=== PATIENT | male | born 1965 | race Two or more races ===

== ENCOUNTER 2022-12-30 11:32 | Inpatient (IN) | payer BC, OTHER ==
[~2022-12-30] VITALS: Ht 172.7 cm; Wt 107.4 kg
[~2022-12-30 11:32] MED LIST: CIPR-173 PO; METR500T PO
[2022-12-30 12:26] LABS: Basophils # (auto) 0 10 ^3/uL (0-0.2); Basophils % (auto) 0.3 % (0.0-2.0); Eosinophils # (auto) 0.2 10 ^3/uL (0-0.8); Eosinophils % (auto) 2.2 % (0.0-7.0); Hematocrit 47.4 % (41.0-53.0); Hemoglobin 15.8 g/dL (13.5-17.5); Lymphocytes # (auto) 2.3 10 ^3/uL (0.4-5.4); Lymphocytes % (auto) 20.6 % (10.0-50.0); Mean Corpuscular Hemoglobin 30.4 pg (28.0-32.0); Mean Corpuscular Hgb Conc. 33.4 g/dL (32.0-36.0); Mean Corpuscular Volume 91.1 fL (80.0-100.0); Monocytes # (auto) 0.6 10 ^3/uL (0-1.3); Monocytes % (auto) 5.5 % (0.0-12.0); Neutrophils # (auto) 7.9 10 ^3/uL (1.6-8.6); Neutrophils % (auto) 71.4 % (37.0-80.0); Red Cell Distribution Width 13.7 % (11.8-14.3); White Blood Cell 11.1 10^3/uL (4.4-10.8)
[2022-12-30 12:32] LABS: Urine Bacteria NONE SEEN /hpf (None Seen); Urine Blood Negative /uL (Negative); Urine Clarity Clear (Clear); Urine Color Colorless (Yellow); Urine Protein, UAD Negative (Negative); Urine Specific Gravity 1.004 (1.001-1.035); Urine Urobilinogen Normal (Negative); Urine WBC 1 /hpf (0 - 3); Urine pH 6.5 (5.0-8.0)
[2022-12-30 12:46] LABS: Alanine Aminotransferase 44 U/L (7-40); Albumin 4.5 g/dL (3.2-4.8); Alkaline Phosphatase 78 U/L (46-116); Anion Gap 9 (5-15); Aspartate Aminotransferase 28 U/L (13-40); Blood Urea Nitrogen 6 mg/dL (9-23); Carbon Dioxide 22 mmol/L (20-30); Chloride 106 mmol/L (98-107); Glucose 183 mg/dL (74-106); Lipase 54 U/L (12-53); Potassium 3.7 mmol/L (3.5-5.1); Sodium 137 mmol/L (136-145)
[2022-12-30 12:47] LABS: Bilirubin, Total 1.6 mg/dL (0.2-1.0); Total Protein 7.6 g/dL (5.7-8.2)
[2022-12-30 13:35] VITALS: PULSE 69; RESP 16; O2SAT 96
[2022-12-30] MEDS ORDERED: MORPHINE SULFATE 4 MG/ML SYR/VIAL IV ONE (18:15)
[2022-12-30] MEDS ORDERED: metroNIDAZOLE 500MG/100ML 100 ML IV ONE (18:15)
[2022-12-30] MEDS ORDERED: ONDANSETRON HCL 4 MG/2 ML VIAL IV ONE (18:15)
[2022-12-30] MEDS ORDERED: CIPROFLOXACIN 400MG/200ML 200 ML IV ONE (18:15)
[2022-12-30] MEDS ORDERED: SODIUM CHLORIDE 0.9% 1,000 ML IV ONE (18:15)
[2022-12-30] MEDS ORDERED: DEXTROSE (50%) 50ML SYRG IV PRN (18:30)
[2022-12-30] MEDS ORDERED: MORPHINE SULFATE INJ 2 MG/ml SYRG IV PRN (18:30)
[2022-12-30] MEDS ORDERED: ONDANSETRON HCL 4 MG/2 ML VIAL IV PRN (18:30)
[2022-12-30] MEDS ORDERED: DOCUSATE SOD 100 MG CAP PO PRN (18:30)
[2022-12-30] MEDS: SODIUM CHLORIDE 0.9% 1,000 ML IV SCH (19:40)
[2022-12-30 21:58] VITALS: PULSE 61; RESP 18; O2SAT 20
[2022-12-30 22:00] VITALS: BP 155/74; PULSE 61; RESP 20; TEMP 97.5; O2SAT 92
[2022-12-30] MEDS ORDERED: LISI20TA56 PO (22:31)
[2022-12-30] MEDS ORDERED: AMLO1TAB23 PO (22:31)
[2022-12-30] MEDS: PIPERACILLIN-TAZOB 3.375GM 100 ML IV SCH (23:21)
[2022-12-30] MEDS: InsuLIN REG 1unit/0.01ml Soln (100units/ml) SC SCH (23:36)
[2022-12-30] MEDS: ACCU-CHEK COMFORT CURVE STRIP VI SCH (23:36)
[2022-12-31] MEDS: PIPERACILLIN-TAZOB 3.375GM 100 ML IV SCH ×2 (05:18→11:39)
[2022-12-31] MEDS: SODIUM CHLORIDE 0.9% 1,000 ML IV SCH ×3 (05:24→19:30)
[2022-12-31] MEDS: ACCU-CHEK COMFORT CURVE STRIP VI SCH ×4 (05:25→23:12)
[2022-12-31] MEDS: InsuLIN REG 1unit/0.01ml Soln (100units/ml) SC SCH ×4 (05:25→23:12)
[2022-12-31 06:09] LABS: Basophils # (auto) 0.1 10 ^3/uL (0-0.2); Basophils % (auto) 0.5 % (0.0-2.0); Eosinophils # (auto) 0.6 10 ^3/uL (0-0.8); Eosinophils % (auto) 4.5 % (0.0-7.0); Hematocrit 44.7 % (41.0-53.0); Hemoglobin 15.3 g/dL (13.5-17.5); Lymphocytes # (auto) 2.2 10 ^3/uL (0.4-5.4); Lymphocytes % (auto) 17.5 % (10.0-50.0); Mean Corpuscular Hemoglobin 31.4 pg (28.0-32.0); Mean Corpuscular Hgb Conc. 34.1 g/dL (32.0-36.0); Mean Corpuscular Volume 91.9 fL (80.0-100.0); Monocytes # (auto) 0.9 10 ^3/uL (0-1.3); Monocytes % (auto) 7.2 % (0.0-12.0); Neutrophils # (auto) 8.7 10 ^3/uL (1.6-8.6); Neutrophils % (auto) 70.3 % (37.0-80.0); Red Blood Cells 4.87 10^6/uL (4.5-5.90); Red Cell Distribution Width 13.3 % (11.8-14.3); White Blood Cell 12.4 10^3/uL (4.4-10.8)
[2022-12-31 06:25] LABS: Alanine Aminotransferase 51 U/L (7-40); Alkaline Phosphatase 67 U/L (46-116); Anion Gap 9 (5-15); Aspartate Aminotransferase 25 U/L (13-40); BUN/Creatinine Ratio 10.5 (10.0-20.0); Bilirubin, Total 2.8 mg/dL (0.2-1.0); Blood Urea Nitrogen 9 mg/dL (9-23); Carbon Dioxide 25 mmol/L (20-30); Chloride 107 mmol/L (98-107); Glucose 103 mg/dL (74-106); Potassium 3.8 mmol/L (3.5-5.1); Sodium 141 mmol/L (136-145); Total Protein 6.6 g/dL (5.7-8.2)
[2022-12-31 09:00] VITALS: BP 126/83; PULSE 71; RESP 15; TEMP 97.9; O2SAT 96
[2022-12-31 13:00] VITALS: BP 130/73; PULSE 72; RESP 18; TEMP 98.3; O2SAT 94
[2022-12-31 17:17] VITALS: BP 127/70; PULSE 71; RESP 18; TEMP 98.9; O2SAT 96
[2022-12-31 20:00] VITALS: PULSE 62; RESP 16; O2SAT 98
[2022-12-31 22:00] VITALS: BP 122/72; PULSE 62; RESP 16; TEMP 98.4; O2SAT 98
[2022-12-31] MEDS: metroNIDAZOLE 500MG/100ML 100 ML IV SCH (22:12)
[2023-01-01] MEDS: SODIUM CHLORIDE 0.9% 1,000 ML IV SCH ×3 (03:50→20:30)
[2023-01-01 05:00] VITALS: BP 117/76; PULSE 72; RESP 16; TEMP 98.1; O2SAT 98
[2023-01-01] MEDS: metroNIDAZOLE 500MG/100ML 100 ML IV SCH ×3 (05:18→21:41)
[2023-01-01] MEDS: ACCU-CHEK COMFORT CURVE STRIP VI SCH ×2 (05:50→11:26)
[2023-01-01] MEDS: InsuLIN REG 1unit/0.01ml Soln (100units/ml) SC SCH ×2 (05:50→11:25)
[2023-01-01 06:45] LABS: Anion Gap 11 (5-15); Carbon Dioxide 21 mmol/L (20-30); Chloride 107 mmol/L (98-107); Potassium 3.5 mmol/L (3.5-5.1); Sodium 139 mmol/L (136-145)
[2023-01-01 06:47] LABS: Calcium 9.1 mg/dL (8.7-10.4)
[2023-01-01 06:49] LABS: Basophils # (auto) 0.1 10 ^3/uL (0-0.2); Basophils % (auto) 0.6 % (0.0-2.0); Eosinophils # (auto) 0.5 10 ^3/uL (0-0.8); Eosinophils % (auto) 5.3 % (0.0-7.0); Hematocrit 46.8 % (41.0-53.0); Hemoglobin 15.8 g/dL (13.5-17.5); Lymphocytes # (auto) 2.1 10 ^3/uL (0.4-5.4); Lymphocytes % (auto) 20.5 % (10.0-50.0); Mean Corpuscular Hemoglobin 31.4 pg (28.0-32.0); Mean Corpuscular Hgb Conc. 33.8 g/dL (32.0-36.0); Mean Corpuscular Volume 92.8 fL (80.0-100.0); Monocytes # (auto) 0.8 10 ^3/uL (0-1.3); Monocytes % (auto) 8.1 % (0.0-12.0); Neutrophils # (auto) 6.7 10 ^3/uL (1.6-8.6); Neutrophils % (auto) 65.5 % (37.0-80.0); Nucleated Red Blood Cells % 0.1 %; Red Blood Cells 5.04 10^6/uL (4.5-5.90); Red Cell Distribution Width 13.5 % (11.8-14.3); White Blood Cell 10.2 10^3/uL (4.4-10.8)
[2023-01-01 06:51] LABS: BUN/Creatinine Ratio 5.6 (10.0-20.0); Blood Urea Nitrogen 5 mg/dL (9-23); Glucose 99 mg/dL (74-106)
[2023-01-01] MEDS: cefTRIAXone 1GM/50ML D5W 50 ML IV SCH (08:26)
[2023-01-01 08:58] VITALS: BP 128/79; PULSE 60; RESP 18; TEMP 97.7; O2SAT 95
[2023-01-01 12:56] VITALS: BP 155/91; PULSE 65; RESP 19; TEMP 98; O2SAT 96
[2023-01-01 16:57] VITALS: BP 151/76; PULSE 63; RESP 18; TEMP 98.4; O2SAT 98
[2023-01-01 20:30] VITALS: PULSE 60; RESP 19; O2SAT 97
[2023-01-01 22:00] VITALS: BP 144/77; PULSE 60; RESP 19; TEMP 98; O2SAT 97
[2023-01-02 05:00] VITALS: BP 141/73; PULSE 58; RESP 19; TEMP 98.1; O2SAT 96
[2023-01-02] MEDS: SODIUM CHLORIDE 0.9% 1,000 ML IV SCH ×2 (05:28→13:10)
[2023-01-02 05:42] LABS: Basophils # (auto) 0.1 10 ^3/uL (0-0.2); Basophils % (auto) 0.8 % (0.0-2.0); Eosinophils # (auto) 0.5 10 ^3/uL (0-0.8); Hematocrit 44.6 % (41.0-53.0); Hemoglobin 15.2 g/dL (13.5-17.5); Lymphocytes # (auto) 2.3 10 ^3/uL (0.4-5.4); Mean Corpuscular Hgb Conc. 34.1 g/dL (32.0-36.0); Mean Corpuscular Volume 90.9 fL (80.0-100.0); Monocytes # (auto) 0.8 10 ^3/uL (0-1.3); Monocytes % (auto) 8.9 % (0.0-12.0); Neutrophils # (auto) 5.1 10 ^3/uL (1.6-8.6); Neutrophils % (auto) 58.3 % (37.0-80.0); Nucleated Red Blood Cells % 0.1 %; Red Blood Cells 4.91 10^6/uL (4.5-5.90); Red Cell Distribution Width 13.3 % (11.8-14.3); White Blood Cell 8.7 10^3/uL (4.4-10.8)
[2023-01-02 05:50] LABS: Anion Gap 7 (5-15); Carbon Dioxide 24 mmol/L (20-30); Chloride 109 mmol/L (98-107); Potassium 3.6 mmol/L (3.5-5.1); Sodium 140 mmol/L (136-145)
[2023-01-02 05:51] LABS: Calcium 8.9 mg/dL (8.5-10.1)
[2023-01-02 05:56] LABS: BUN/Creatinine Ratio 5.8 (10.0-20.0); Blood Urea Nitrogen 5 mg/dL (9-23); Glucose 99 mg/dL (74-106)
[2023-01-02] MEDS: metroNIDAZOLE 500MG/100ML 100 ML IV SCH ×2 (06:00→14:54)
[2023-01-02 06:49] LABS: Lipase 51 U/L (12-53)
[2023-01-02 08:00] VITALS: RESP 20
[2023-01-02 09:00] VITALS: BP 134/77; PULSE 63; RESP 20; TEMP 98.2; O2SAT 98
[2023-01-02] MEDS: cefTRIAXone 1GM/50ML D5W 50 ML IV SCH (09:15)
[2023-01-02 13:00] VITALS: BP 163/96; PULSE 66; RESP 20; TEMP 97.7; O2SAT 93
[2023-01-03] MEDS ORDERED: METR-344 PO (10:16)
[2023-01-03] MEDS ORDERED: LEVO500T91 PO (10:16)
== END 2023-01-02 16:25 | disposition home or self-care (01) | DRG 720 ==
LOC: ER 11:32 → OVERFLOW 18:28 → WEST WING 21:56
PROVIDERS: ADMIT Nurse Practitioner Family; ATTEND Nurse Practitioner Acute Care
DX: A41.9 Sepsis, unspecified organism (principal); K85.90 Acute pancreatitis without necrosis or infection, unspecified; K76.0 Fatty (change of) liver, not elsewhere classified; E11.65 Type 2 diabetes mellitus with hyperglycemia; K57.32 Diverticulitis of large intestine without perforation or abscess without bleeding; I10 Essential (primary) hypertension; E66.9 Obesity, unspecified; Z80.9 Family history of malignant neoplasm, unspecified; Z89.421 Acquired absence of other right toe(s); Z68.36 Body mass index [BMI] 36.0-36.9, adult
CPT/HCPCS: 36415; 74176; 76705; 80048; 80053; 81001; 82150; 82378; 82962; 83036; 83690; 85025; 93005; 96365; 96367; G0378; J0696; J2543; J3490

== ENCOUNTER 2024-03-21 01:19 | Emergency (ER) | payer OTHER ==
[~2024-03-21] VITALS: Ht 172.7 cm; Wt 110.0 kg
[~2024-03-21 01:19] MED LIST changes: +AMLO1TAB23 PO; +LEVO500T91 PO; +LISI20TA56 PO; +METR-344 PO
--- NOTE | 2024-03-21 02:45 | ED.PDOC ---
History of Present Illness HPI Comments Patient is a 58-year-old obese male who arrives the ED today with complaints of nausea and vomiting due to excessive alcohol abuse for the past 4-5 days. Patient states he can not consumed food due to his nausea and vomiting. Patient was hypertensive and tachycardic at arrival. Patient has a long history of alcohol abuse. Chief Complaint: ETOH Time Seen by MD: 01:30 Primary Care Provider: CHLOE Gutierrez Notes: Nurses Notes Allergies: Coded Allergies: NO KNOWN ALLERGIES (Unverified , 09/26/14) Home Meds Active Scripts Levofloxacin Hemihydrate (LEVAQUIN 500 MG) 500 Mg Tab, 1 TAB PO DAILY for 7 Days, #7 TAB Prov:CARMEN MILLS NP 01/03/23 Metronidazole (Flagyl) 500 Mg Tab, 1 TAB PO TID for 7 Days, #21 TAB Prov:CARMEN MILLS NP 01/03/23 Metronidazole (Flagyl) 500 Mg Tab, 500 MG PO TID, #15 TAB Prov:NISHI LUCIA MD 09/28/14 Ciprofloxacin Hcl (Cipro) 500 Mg Tab, 500 MG PO BID, #10 TAB Prov:NISHI LUCIA MD 09/28/14 Reported Medications Lisinopril (Lisinopril) 20 Mg Tab, 1 TAB PO DAILY 12/30/22 Amlodipine Besylate (Amlodipine Besylate) 10 Mg Tab, 1 TAB PO 12/30/22 Information Source: Patient Mode of Arrival: Ambulatory Timing: Days Duration: Since onset Prehospital treatment: None Past Medical History PAST MEDICAL HISTORY: DM, HTN Surgical History: Denies all surgeries Family History Family History: Unobtainable Social History Smoker: Cigarettes Alcohol: Heavy Drugs: Denies Drug Use Lives In: Home Constitutional: denies: chills, diaphoresis, fatigue, fever, malaise, sweats, weakness, others EENTM: denies: blurred vision, double vision, ear bleeding, ear discharge, ear drainage, ear pain, ear ringing, eye pain, eye redness, hearing loss, mouth pain, mouth swelling, nasal discharge, nose bleeding, nose congestion, nose pain , photophobia, tearing, throat pain, throat swelling, voice changes, others Respiratory: denies: cough, hemoptysis, orthopnea, SOB at rest, shortness of breath, SOB with excertion, stridor, wheezing, others Cardiovascular: denies: chest pain, dizzy spells, diaphoresis, Dyspnea on exertion, edema, irregular heart beat, left arm pain, lightheadedness, palpitations, PND, syncope, others Gastrointestinal: denies: abdomen distended, abdominal pain, blood streaked bowels, constipated, diarrhea, dysphagia, difficulty swallowing, hematemesis, melena, nausea, poor appetite, poor fluid intake, rectal bleeding, rectal pain, vomiting, others Genitourinary: denies: burning, dysuria, flank pain, frequency, hematuria, incontinence, penile discharge, penile sore, pain, testicle pain, testicle swelling, urgency, others Neurological: denies: dizziness, fainting, headache, left sided numbness, left sided weakness, numbness, paresthesia, pre-existing deficit, right sided numbness, right sided weakness, seizure, speech problems, tingling, tremors, weakness, others Musculoskeletal: denies: back pain, gout, joint pain, joint swelling, muscle pain, muscle stiffness, neck pain, others Integumetry: denies: bruises, change in color, change in hair/nails, dryness, laceration, lesions, lumps, rash, wounds, others Allergic/Immunocompromised: denies: Difficulty Healing, Frequent Infections, Hives, Itching, others Hematologic/Lymphatic: denies: anemia, blood clots, easy bleeding, easy bruising, swollen glands, others Endocrine: denies: excessive hunger, excessive sweating, excessive thirst, excessive urination, flushing, intolerance to cold, intolerance to heat, unexplained weight gain, unexplained weight loss, others Psychiatric: denies: anxiety, bipolar disorder, depression, hopeless, panic disorder, schizophrenia, sleepless, suicidal, others Unable to Obtain due to: Altered Mental Status (Due to alcohol intoxication) Physical Exam General Appearance: Moderate Distress (Patient was intoxicated at time of exam.), Obese HEENT: Normal ENT Inspection, Pharynx Normal, TMs Normal Neck: Full Range of Motion, Non-Tender, Normal, Normal Inspection Respiratory: Chest Non-Tender, Lungs Clear, No Accessory Muscle Use, No Respiratory Distress, Normal Breath Sounds Cardiovascular: No Edema, No JVD, No Murmur, No Gallop, Normal Peripheral Pulses, Regular Rate/Rhythm Breast Exam: Deferred Gastrointestinal: No Pulsatile Mass, Normal Bowel Sounds, Soft Genitalia: Deferred Pelvic: Deferred Rectal: Deferred Extremities: No calf tenderness, Normal capillary refill, Normal inspection, Normal range of motion, Non-tender, No pedal edema Neurologic: Alert, No Motor Deficits, No Sensory Deficits Cerebellar Function: NOT DONE Reflexes: NOT DONE Skin: Dry, Normal Color, Warm Lymphatic: No Adenopathy Was a procedure done? Was a procedure done?: No Differential Dx Considerations may include: Alcohol abuse, illicit drug use X-Ray, Labs, Meds, VS Vital Signs Date Time Temp Pulse Resp B/P (MAP) Pulse Ox O2 Delivery O2 Flow Rate FiO2 03/21/24 01:25 98.6 101 18 145/90 (108) 96 X-Ray, Labs, Meds, VS Comment Patient will be provided with fluids and additional medication and will be discharged once stabilized. Time of 1ST Reevaluation: 02:43 Reevaluation 1ST: Improved Consultation: PCP Patient Education/Counseling: Diagnosis, Treatment Family Education/Counseling: Diagnosis, Treatment Departure 1 Departure Time of Disposition: 02:43 Impression: Primary Impression: Alcohol abuse Additional Impression: Alcohol intoxication Disposition: 01 HOME / SELF CARE / HOMELESS Condition: Stable Additional Instructions: Advised patient utilize Tylenol and or Motrin as needed for pain relief as well as good hydration and healthy nutrition for the next several weeks. Patient should follow up with a alcohol cessation programs such as AA. Discharged With: Self Critical Care Note Critical Care Time?: No Stability Stability form required: No Heart Score Heart Score: Heart Score Response (Comments) Value History N/A 0 EKG N/A 0 Age N/A 0 Risk Factors N/A 0 Troponin N/A 0 Total 0 SHARON HUMPHREY PAC Mar 21, 2024 02:45
[2024-03-21 05:19] VITALS: BP 127/96; PULSE 92; RESP 16; TEMP 98.7; O2SAT 93
[2024-03-21] MEDS: THIAMINE 100mg/ml INJ (200mg/2ml VIAL) IM ONE (05:24)
[2024-03-21] MEDS: SODIUM CHLORIDE 0.9% 2,000 ML IV ONE (05:39)
[2024-03-21] MEDS: METOCLOPRAMIDE HCL 5MG/ml INJ 2ml VIAL IV ONE (05:42)
[2024-03-21] MEDS: ONDANSETRON HCL 4 MG/2 ML VIAL IV ONE (05:42)
== END 2024-03-21 06:30 | disposition home or self-care (01) ==
LOC: ER 01:19
DX: F10.129 Alcohol abuse with intoxication, unspecified (principal); I10 Essential (primary) hypertension; E11.9 Type 2 diabetes mellitus without complications; E66.9 Obesity, unspecified; F17.210 Nicotine dependence, cigarettes, uncomplicated; Z79.899 Other long term (current) drug therapy; Y90.9 Presence of alcohol in blood, level not specified; Z68.36 Body mass index [BMI] 36.0-36.9, adult
CPT/HCPCS: 96361; 96372; 96374; 96375; 99284; J2405; J2765; J3411; J7030